=== PATIENT | female | born 1955 | race Caucasian/White ===

== ENCOUNTER 2021-10-17 03:50 | Day surgery (SDC) | payer OTHER ==
[2021-10-11 13:49] VITALS: BMI 27.3
[2021-10-17] MEDS ORDERED: ACETAMINOPHEN 1000 MG/100 ML BAG IVPB ONE (13:05)
[2021-10-17] MEDS ORDERED: KETOROLAC TROMETHAMINE 30 MG/1 ML VIAL ONE (13:10)
[2021-10-17] MEDS ORDERED: MIDAZOLAM HCL 2 MG/2 ML SINGLE DOSE VIAL ONE (13:10)
[2021-10-17] MEDS ORDERED: DEXTROSE 5%-0.45% SALINE 1,000 ML IV SCH (13:15)
[2021-10-17] MEDS ORDERED: IBUPROFEN 800 MG/8 ML IJ IVPB SCH (13:15)
[2021-10-17] MEDS ORDERED: ceFAZolin SODIUM 1 GM VIAL ONE (13:19)
[2021-10-17] MEDS ORDERED: ceFAZolin SODIUM 1 GM VIAL IVPB ONE (13:21)
[2021-10-17] MEDS ORDERED: ceFAZolin 2 GRAM PREMIX BAG IVPB ONE (13:21)
[2021-10-17 15:45] VITALS: BP 130/64; PULSE 89; TEMP 97.3
== END 2021-10-17 15:30 | disposition home or self-care (01) ==
LOC: JASU-SURG 03:50
PROVIDERS: ATTEND Urology
PROC: 0TF6XZZ Fragmentation in Right Ureter, External Approach (ICD-10-PCS; principal; 2021-10-17 13:30)
DX: N20.1 Calculus of ureter (principal)